=== PATIENT | female | born 2000 | race African-American/Black ===

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

== ENCOUNTER 2022-10-27 14:15 | Emergency (ER) | payer MEDICAID ==
[~2022-10-27] VITALS: Ht 160 cm; Wt 88.0 kg
[2022-10-27] MEDS ORDERED: ONDANSETRON 4MG ODT PO STA (18:17)
[2022-10-27 18:52] LABS: BASOPHILS % 0.3 % (0.0-2.0); EOSINOPHILS % 0.2 % (0.0-5.0); HEMATOCRIT. 36.9 % (36.0-48.0); HEMOGLOBIN. 12.2 g/dL (12.0-16.0); LYMPHOCYTES % 24.7 % (20.0-50.0); MEAN CORPUSCULAR HEMOGLOBIN 29.3 pg (28.0-32.0); MEAN PLATELET VOLUME 8.3 fl (7.4-10.4); MONOCYTES % 2.9 % (2.0-8.0); NEUTROPHILS % 71.9 % (40.0-76.0); PLATELET 341 x1000/uL (130-400); RED BLOOD CELL COUNT 4.15 mill/uL (4.2-5.4); RED CELL DISTRIBUTION WIDTH 14.4 % (11.6-14.6)
[2022-10-27 18:57] LABS: CHLORIDE 104 mEq/L (98-107)
[2022-10-27 19:01] LABS: HCG SCREEN NEGATIVE
[2022-10-27] MEDS ORDERED: MAGNESIUM/ALUMINUM HYDROXIDE/SIMETHICONE 30ML UDC PO STA (19:05)
[2022-10-27] MEDS ORDERED: VISCOUS LIDOCAINE 2% 15 ML UDC PO STA (19:05)
[2022-10-27] MEDS ORDERED: DICYCLOMINE 10 MG/5 ML ORAL SYR PO STA (19:05)
[2022-10-27] MEDS ORDERED: SODIUM CHLORIDE 0.9% 1,000 ML IV ONE (19:15)
[2022-10-27] MEDS ORDERED: ONDA4TAB50 MT (19:34)
[2022-10-27 19:58] VITALS: BP 126/75
== END 2022-10-27 20:30 | disposition home or self-care (01) ==
LOC: ER 14:21
DX: K29.00 Acute gastritis without bleeding (principal)
CPT/HCPCS: 36415; 80053; 81025; 83690; 84703; 85025; 99284; J7030; Q0162

== ENCOUNTER 2024-08-11 12:38 | Emergency (ER) | payer MEDICAID ==
[~2024-08-11] VITALS: Ht 160 cm; Wt 70.0 kg
[~2024-08-11 12:38] MED LIST: ONDA4TAB50 MT
[2024-08-11 12:42] VITALS: O2SAT 97
[2024-08-11 12:52] VITALS: BP 138/59; PULSE 97; RESP 18; TEMP 98.5; O2SAT 99
[2024-08-11 13:11] LABS: BASOPHILS % 0.3 % (0.0-2.0); EOSINOPHILS % 1.9 % (0.0-5.0); HEMATOCRIT. 41.1 % (36.0-48.0); HEMOGLOBIN. 13.5 g/dL (12.0-16.0); LYMPHOCYTES % 21.6 % (20.0-50.0); MEAN CORPUSCULAR HEMOGLOBIN 31.1 pg (28.0-32.0); MEAN CORPUSCULAR HGB CONC 32.8 g/dL (31.0-37.0); MEAN CORPUSCULAR VOLUME 94.7 fL (81.0-99.0); MEAN PLATELET VOLUME 8.8 fl (7.4-10.4); MONOCYTES % 9.3 % (2.0-8.0); NEUTROPHILS % 66.9 % (40.0-76.0); PLATELET 243 x1000/uL (130-400); RED BLOOD CELL COUNT 4.34 mill/uL (4.2-5.4); RED CELL DISTRIBUTION WIDTH 13.8 % (11.6-14.6); WHITE BLOOD COUNT 5.5 x1000/uL (4.5-11.0)
[2024-08-11 13:13] LABS: CHLORIDE 105 mEq/L (98-107); POTASSIUM 3.8 mEq/L (3.5-5.1); SODIUM 137 mEq/L (136-145)
[2024-08-11 13:14] LABS: CARBON DIOXIDE 25 mEq/L (21-32)
[2024-08-11 13:15] LABS: CALCIUM 9.5 mg/dL (8.7-10.4)
[2024-08-11 13:19] LABS: CREATININE 0.8 mg/dL (0.6-1.0); GLUCOSE 97 mg/dL (70-105); UREA NITROGEN BLOOD 7 mg/dL (9-23)
[2024-08-11 14:13] LABS: CLARITY URINE CLOUDY (CLEAR); COLOR URINE YELLOW (YELLOW); GLUCOSE URINE NEGATIVE (NEGATIVE); KETONES URINE 1+ (NEGATIVE); LEUKOCYTE ESTERASE URINE NEGATIVE (NEGATIVE); NITRITE URINE NEGATIVE (NEGATIVE); OCCULT BLOOD URINE NEGATIVE (NEGATIVE); PH URINE 7.5 (4.5-8.0); PROTEIN URINE NEGATIVE (NEGATIVE)
[2024-08-11] MEDS: DOCUSATE SODIUM 250MG CAPSULE PO ONE (14:14)
[2024-08-11 14:20] LABS: RBC URINE 0-2 /hpf (0-2); SQUAMOUS EPITHELIAL CELL URINE 2+ /lpf (RARE/1+); WBC URINE 0-2 /hpf (0-2); YEAST URINE NONE SEEN
[2024-08-11 14:21] LABS: BACTERIA URINE 2+
[2024-08-11] MEDS ORDERED: POLY17PO3 MT (14:29)
[2024-08-11] MEDS ORDERED: DOCU-138 MT (14:29)
== END 2024-08-11 15:24 | disposition home or self-care (01) ==
LOC: ER 12:38
DX: K59.00 Constipation, unspecified (principal); I10 Essential (primary) hypertension; Z20.822 Contact with and (suspected) exposure to COVID-19
CPT/HCPCS: 36415; 80048; 81003; 81025; 85025; 87426; 87804; 99283